=== PATIENT | female | born 1975 | race Caucasian/White ===

== ENCOUNTER 2017-03-02 05:21 | Day surgery (SDC) | payer OTHER ==
[~2017-03-02 05:21] MED LIST: DOXYCYCLINE HY100 M5 PO; NO HOME MEDICATION XX; NORCO 5-325 TA1 EACH PO; PRILOSEC40 M1 PO; ZOFRAN ODT8 MG SL; ZOFRAN4 M2 PO
[2017-03-02 06:02] LABS: BASO % 0.4 % (0-2); EOS % 1.9 % (0-7); EOSINOPHIL ABSOLUTE COUNT 0.2 tho/cmm (0.0-0.7); HCT-HEMATOCRIT 40.6 % (34.0-49.0); HGB-HEMOGLOBIN 13.7 gm/dl (12.0-15.5); IMMATURE GRANULOCYTES ABSOLUTE 0.04 tho/cmm (0-0.03); IMMATURE GRANULOCYTES PERCENT 0.4 % (0-0.3); LYMPH % 26.9 % (20-45); LYMPH ABSOLUTE COUNT 2.9 tho/cmm (0.8-4.5); MCH (MEAN CORPUSCULAR HGB) 28.5 pg (28.0-32.0); MCHC MEAN CORPUSCULAR HGB CONC 33.7 % (32.0-36.0); MCV (MEAN CELL VOLUME) 84.6 fl (82.0-96.0); MEAN PLATELET VOLUME 9.7 cmc (9.4-12.4); MONO % 6.9 % (0-12); MONOCYTE ABSOLUTE COUNT 0.7 tho/cmm (0.0-1.2); NEUTROPHIL ABSOLUTE COUNT 6.9 tho/cmm (1.6-8.0); NEUTROPHIL-AUTOMATED 6.9 tho/cmm (1.6-8.0); NEUTROPHILS % 63.5 % (40-80); PLATELET COUNT 349 tho/cmm (150-450); RED CELL DISTRIBUTION WIDTH 13.7 % (12.4-16.4); WHITE BLOOD COUNT 10.8 tho/cmm (4.0-10.0)
[2017-03-02 06:12] LABS: ALB/GLOB RATIO 0.7 (0.8-2.0); ALBUMIN 3.4 g/dl (3.5-5.0); ALKALINE PHOSPHATASE 56 U/L (33-138); ALT/SGPT 23 U/L (12-78); ANION GAP 10 mmol/L (0-20); AST/SGOT 13 U/L (10-40); BILIRUBIN,TOTAL 0.6 mg/dl (0-1.5); BLOOD UREA NITROGEN 10 mg/dl (6-24); CALCIUM 8.6 mg/dl (8.5-10.5); CARBON DIOXIDE-VENOUS 27 mmol/L (22-32); CHLORIDE 107 mmol/l (96-110); GLUCOSE 92 mg/dL (70-110); POTASSIUM 3.6 mmol/L (3.7-5.1); SODIUM 140 mmol/L (135-145); eGFR VALUE FOR BLACK 82 mL/Min
[2017-03-03] MEDS ORDERED: NORCO 5-325 TA1 EACH PO (00:34)
== END 2017-03-03 11:20 ==
LOC: SHSC 05:21 → ORW 07:21 → PACU 08:29 → OBGF 09:45
PROVIDERS: Obstetrics & Gynecology
PROC: 0UT94ZZ Resection of Uterus, Percutaneous Endoscopic Approach (ICD-10-PCS; principal; 2017-03-02)
PROC: 0UTC4ZZ Resection of Cervix, Percutaneous Endoscopic Approach (ICD-10-PCS; 2017-03-02)
PROC: 0UT64ZZ Resection of Left Fallopian Tube, Percutaneous Endoscopic Approach (ICD-10-PCS; 2017-03-02)
PROC: 8E0W4CZ Robotic Assisted Procedure of Trunk Region, Percutaneous Endoscopic Approach (ICD-10-PCS; 2017-03-02)
DX: D25.2 Subserosal leiomyoma of uterus (principal); N80.0 Endometriosis of uterus; E66.01 Morbid (severe) obesity due to excess calories; Z68.41 Body mass index [BMI] 40.0-44.9, adult; Z90.49 Acquired absence of other specified parts of digestive tract; Z90.79 Acquired absence of other genital organ(s); Z98.890 Other specified postprocedural states
CPT/HCPCS: J0690; J2175; J3010; J7030; J7121